=== PATIENT | female | born 1955 | race Caucasian/White ===

== ENCOUNTER 2021-06-25 00:54 | Day surgery (SDC) | payer MEDICARE, SELFPAY ==
[2021-06-18 12:56] VITALS: BMI 35.5
[2021-06-25 08:16] VITALS: BP 147/98; PULSE 70; RESP 18; TEMP 36.3; O2SAT 99; BMI 36.0
[2021-06-25] MEDS: LACTATED RINGERS 1,000 ML 150 ML IV CONT (08:27)
--- NOTE | 2021-06-25 08:28 | P.PNAN_ITS ---
Anes - Initial Pre Proc Eval Procedure: Operation Date: 06/25/21 09:15 Proposed Procedures p Screening Colonoscopy - Herrera Flores MD Date/Time: 06/25/21 08:28 Surgeon: Herrera Flores MD Pre Op Diagnosis: neoplasm screening Z12.11 Patient Data Age: 66 Gender: F Height: 1.73 m Weight: 107.4 kg Last Vital Signs Temp 36.3 C L 06/25/21 08:16 Pulse 70 06/25/21 08:16 Resp 18 06/25/21 08:16 BP 147/98 H 06/25/21 08:16 Pulse Ox 99 06/25/21 08:16 Allergies Allergy/AdvReac Type Severity Reaction Status Date / Time No Known Allergies Allergy Verified 06/25/21 08:15 Home Medications Medication Instructions Recorded Confirmed Type No Home Medications 06/18/21 06/25/21 History Patient hx anesthesia problems: none Family hx anesthesia problems: none Results Review: All pre-operative results and documents have been reviewed as part of the pre-operative evaluation. COUNTS INCLUDE 234 BEDS AT [facility] Past Medical History Medical History (Updated 06/25/21 @ 08:29 by Mehdi Faustin MD) GERD (gastroesophageal reflux disease) History of CVA (cerebrovascular accident) Obesity Surgical History Surgical History (Updated 06/25/21 @ 08:29 by Mehdi Faustin MD) H/O colonoscopy History of tubal ligation Social History Social History Smoking status: Never smoker Alcohol intake: current Drinks per week: 2 Substance use: current Substance use type: does not use Living arrangements: alone Spiritual care concerns: No Anes - Eval Final PreProcedure Day of Procedure 06/25/21 08:28 Patient weight: obese Heart: regular rate and rhythm Lungs: clear to auscultation Airway: Mallampati scale class II Neurological: alert and oriented Last oral intake: >/= 8 hours ASA classification: II Emergent: no Anesthetic plan: proceed Anesthesia type and monitoring: general GIVS and standard monitoring Results Review: All pre-operative results and documents have been reviewed as part of the pre-operative evaluation. Informed Consent: The patient's anesthetic plan and its attendant risks and sacha efits were discussed with the patient/family/POA. Questions were solicited and answers provided to the satisfaction of the patient/family/POA.
--- NOTE | 2021-06-25 08:57 | PM.HPGS ---
History of Present Illness History of Present Illness Consent: Risks, benefits, and alternatives have been discussed and questions answered. Patient agrees to proceed with procedure. Chief complaint: neoplasm screening Z12.11 Narrative: Sameera Krause is a 66 year old female here for screening colonoscopy, last one about 10 years ago. Review of Systems Constitutional: Constitutional: Denies headache(s) and Denies weakness Eyes: Eyes: Denies blurry vision ENT: Reports Normal hearing present, Denies headache(s) and Denies neck pain Cardiovascular: Cardiovascular: Denies chest pain and Denies dyspnea Respiratory: Respiratory: Denies dyspnea Gastrointestinal: Gastrointestinal: Reports no additional gastrointestinal complaints Genitourinary: Genitourinary: Denies dysuria Musculoskeletal: Musculoskeletal: Denies neck pain Integumentary/Breasts: Skin/Breast: Denies dry skin Neurologic: Reports Normal hearing present, Denies headache(s) and Denies weakness Psychiatric: Psychiatric: Denies anxiety Endocrine: Endocrine: Denies change in body appearance Hematologic/Lymphatic: Hematologic/Lymphatic: Denies easy bleeding Allergic/Immunologic: Allergic/Immunologic: Denies urticaria PMF Past Medical History Medical History (Updated 06/25/21 @ 08:58 by Herrera Flores MD) Colon cancer screening GERD (gastroesophageal reflux disease) History of CVA (cerebrovascular accident) Obesity Surgical History Surgical History (Updated 06/25/21 @ 08:29 by Mehdi Faustin MD) H/O colonoscopy History of tubal ligation Social History Social History Smoking status: Never smoker Alcohol intake: current Drinks per week: 2 Substance use: current Substance use type: does not use Living arrangements: alone Spiritual care concerns: No Meds Home Medications and Allergies Home Medications Medication Instructions Recorded Confirmed Type No Home Medications 06/18/21 06/25/21 History Allergies Allergy/AdvReac Type Severity Reaction Status Date / Time No Known Allergies Allergy Verified 06/25/21 08:15 Vital Signs Vital Signs - 24 hr 06/25/21 08:16 Temperature 97.4 F L Pulse Rate 70 Respiratory Rate 18 Blood Pressure 147/98 H Pulse Oximetry 99 Exam Const: General: comfortable and no acute distress HENMT: General nose exam: Normal nares present Eyes: General: appearance normal, both eyes and all related structures Neck: Neck: no JVD Resp: Auscultation: clear to auscultation bilaterally Cardio: Rate: regular rate Rhythm: regular rhythm GI: Inspection: non-distended GI Palp: Yes Soft to palpation Skin: General skin exam: normal color Neuro: General: gait normal Speech: normal speech Extrem: General: normal to inspection Psych: Mental Status: mental status grossly normal Assessment and Plan Assessment and plan (1) Colon cancer screening: Code(s): Z12.11 - Encounter for screening for malignant neoplasm of colon Status: Acute Assessment and Plan: colonoscopy
[2021-06-25 09:24] VITALS: BP 155/90; PULSE 70; RESP 20; O2SAT 99
[2021-06-25 09:34] VITALS: BP 165/90; PULSE 61; RESP 21; O2SAT 100
[2021-06-25 09:44] VITALS: BP 151/87; PULSE 59; RESP 12; O2SAT 100
== END 2021-06-25 09:51 | disposition home or self-care (01) ==
PROVIDERS: Visit Provider Internal Medicine Gastroenterology
PROC: 0DJD8ZZ Inspection of Lower Intestinal Tract, Via Natural or Artificial Opening Endoscopic (ICD-10-PCS; CPT 45378; principal; 2021-06-25 09:15)
DX: Z12.11 Encounter for screening for malignant neoplasm of colon (principal); D12.3 Benign neoplasm of transverse colon; K21.9 Gastro-esophageal reflux disease without esophagitis; Z86.73 Personal history of transient ischemic attack (TIA), and cerebral infarction without residual deficits; E66.9 Obesity, unspecified; Z68.36 Body mass index [BMI] 36.0-36.9, adult
CPT/HCPCS: 45380; 88305; J7120